=== PATIENT | female | born 1955 | race Caucasian/White ===

== ENCOUNTER 2016-10-20 02:16 | Emergency (ER) | payer OTHER ==
[~2016-10-20] VITALS: Ht 167.6 cm; Wt 80.0 kg
[2016-10-20 02:31] VITALS: BP 125/72; PULSE 95; RESP 16; TEMP 98.1; O2SAT 95
[2016-10-20] MEDS ORDERED: LEVO.05 PO (02:38)
[2016-10-20] MEDS ORDERED: ALPR0.5T3 PO (02:38)
[2016-10-20] MEDS ORDERED: PRIS50TA PO (02:38)
[2016-10-20 03:52] LABS: BASOPHIL # 0.1 TH/MM3 (0-0.2); BASOPHIL % 0.7 % (0.0-2.0); EOSINOPHIL # 0.3 TH/MM3 (0-0.4); HEMO FLAGS DIFF FINAL; LYMPH % 30.6 % (9.0-44.0); LYMPHOCYTE # 2.6 TH/MM3 (1.0-4.8); MEAN CELL VOLUME 83.6 FL (80.0-100.0); MEAN CORPUSCULAR HEMOGLOBIN 27.8 PG (27.0-34.0); MEAN CORPUSCULAR HGB CONC 33.2 % (32.0-36.0); MONO % 6.8 % (0.0-8.0); NEUT % 58.9 % (16.0-70.0); PLATELET COUNT 378 TH/MM3 (150-450); RED BLOOD COUNT 4.55 MIL/MM3 (4.00-5.30); RED CELL DISTRIBUTION WIDTH 15.9 % (11.6-17.2); WHITE BLOOD COUNT 8.5 TH/MM3 (4.0-11.0)
[2016-10-20 03:53] LABS: BACTERIA, URINE RARE /hpf; BLOOD, URINE NEG (NEG); COMMENT (UR) CULT NOT INDICATED; CULTURE IF INDICATED CULT NOT INDICATED; GLUCOSE,URINE NEG (NEG); KETONE, URINE NEG (NEG); NITRITE,URINE NEG (NEG); SQUAMOUS EPITHELIAL CELL URINE <1 /hpf (0-5); URINE COLOR COLORLESS (YELLW/STRAW)
[2016-10-20 03:59] LABS: AMPHETAMINE, URINE NEG (NEG); BARBITURATES, URINE NEG (NEG); COCAINE, URINE NEG (NEG)
[2016-10-20 04:06] LABS: ALT (GPT) 24 U/L (10-53); ANION GAP 16 MEQ/L (5-15); AST (GOT) 22 U/L (15-37); BICARBONATE 20.2 MEQ/L (21.0-32.0); BLOOD UREA NITROGEN 12 MG/DL (7-18); CHLORIDE 109 MEQ/L (98-107); GLOMERULAR FILTRATION RATE 71 ML/MIN (>89); POTASSIUM 4.2 MEQ/L (3.5-5.1); SODIUM (NA) 145 MEQ/L (136-145)
[2016-10-20 04:15] LABS: ALKALINE PHOSPHATASE 111 U/L (45-117); TOTAL BILIRUBIN ADULT 0.1 MG/DL (0.2-1.0)
[2016-10-20 04:20] LABS: ACETAMINOPHEN LESS THAN 2.0 MCG/ML (10.0-30.0)
--- NOTE | 2016-10-20 04:43 | PD ---
HPI Chief Complaint: Psychiatric Symptoms Time Seen by Provider: 04:38 Travel History International Travel<30 days: No Contact w/Intl Traveler<30days: No Traveled to known affect area: No History of Present Illness HPI 61-year-old white female presents to emergency department under [place] act by PD. Her ex- had called PD notifying them that his ex- was feeling acutely suicidal. She states that she's been overwhelmed with the building of her new mobile home in a mobile home park by the [facility]. She states that she has been having problems with building codes in the community. She also states that her brother was diagnosed 6 months ago with ALS. She was hoping to have her home done so they could spend some time together. She admits to drinking alcohol seeming. She states that she gets along well with her ex- . They spent a lot of weekends together. Tonight she had expressed suicidal thoughts. She stated that she was considering [place] and [place]. She denies any toxic ingestions. She states that she truly does not want to hurt herself. She denies any homicidal ideation. No recent illness. PFSH Past Medical History Narrative Medical Depression, hypothyroidism, obesity Depression: Yes Thyroid Disease: Yes (hypo) Tetanus Vaccination: Unknown Influenza Vaccination: No ?: Not Past Surgical History Narrative Surgical Gastric bypass, cholecystectomy, face lift Abdominal Surgery: Yes (gastric bypass) Social History Alcohol Use: Yes Tobacco Use: No Substance Use: No Allergies-Medications (Allergen,Severity, Reaction): Coded Allergies: No Known Allergies (Unverified , 10/20/16) Reported Meds & Prescriptions Reported Meds & Active Scripts Active Reported Alprazolam 0.5 Mg Tab 0.5 Mg PO Q6H PRN Pristiq 24 HR (Desvenlafaxine ER 24 HR) 50 Mg Tab 50 Mg PO DAILY Synthroid (Levothyroxine Sodium) 50 Mcg Tab 50 Mcg PO DAILY Review of Systems Except as stated in HPI: all other systems reviewed are Neg Psychiatric: Positive: Depression, Suicidal Ideations, Mood Disorder, No: Anxiety, Disorder of Thought, Substance Abuse, Homicidal Ideation Physical Exam Narrative GENERAL: Well-nourished, well-developed patient. SKIN: Warm and dry. HEAD: Normocephalic and atraumatic. EYES: No scleral icterus. No injection or drainage. ENT: No nasal drainage noted. Mucous membranes pink. Airway patent. NECK: Supple, trachea midline. Moves head freely without obvious discomfort. CARDIOVASCULAR: Regular rate and rhythm without murmurs, gallops, or rubs. RESPIRATORY: Breath sounds equal bilaterally. No accessory muscle use. GASTROINTESTINAL: Abdomen soft, non-tender, nondistended. EXTREMITIES: No cyanosis or edema. BACK: Nontender without obvious deformity. No CVA tenderness. NEURO: Patient is alert and oriented. no sensorimotor deficits. Nonfocal. Normal speech. PSYCH: No delusions. No auditory or visual hallucinations. Data Data Last Documented VS Vital Signs Date Time Temp Pulse Resp B/P Pulse Ox O2 Delivery O2 Flow Rate FiO2 10/20/16 02:31 98.1 95 16 125/72 95 Orders Complete Blood Count With Diff (10/20/16 03:22) Comprehensive Metabolic Panel (10/20/16 03:22) Thyroid Stimulating Hormone (10/20/16 03:22) Urinalysis - C+S If Indicated (10/20/16 03:22) Psych Screen (10/20/16 03:22) Drug Screen, Random Urine (10/20/16 03:22) Alcohol (Ethanol) (10/20/16 03:22) Salicylates (Aspirin) (10/20/16 03:22) Tylenol (Acetaminophen) (10/20/16 03:22) Labs Laboratory Tests Test 10/20/16 03:15 White Blood Count 8.5 TH/MM3 Red Blood Count 4.55 MIL/MM3 Hemoglobin 12.6 GM/DL Hematocrit 38.0 % Mean Corpuscular Volume 83.6 FL Mean Corpuscular Hemoglobin 27.8 PG Mean Corpuscular Hemoglobin 33.2 % Concent Red Cell Distribution Width 15.9 % Platelet Count 378 TH/MM3 Mean Platelet Volume 7.5 FL Neutrophils (%) (Auto) 58.9 % Lymphocytes (%) (Auto) 30.6 % Monocytes (%) (Auto) 6.8 % Eosinophils (%) (Auto) 3.0 % Basophils (%) (Auto) 0.7 % Neutrophils # (Auto) 5.0 TH/MM3 Lymphocytes # (Auto) 2.6 TH/MM3 Monocytes # (Auto) 0.6 TH/MM3 Eosinophils # (Auto) 0.3 TH/MM3 Basophils # (Auto) 0.1 TH/MM3 CBC Comment DIFF FINAL Differential Comment Urine Color COLORLESS Urine Turbidity CLEAR Urine pH 5.0 Urine Specific [place] 1.004 Urine Protein NEG mg/dL Urine Glucose (UA) NEG mg/dL Urine Ketones NEG mg/dL Urine Occult Blood NEG Urine Nitrite NEG Urine Bilirubin NEG Urine Urobilinogen LESS THAN 2.0 MG/DL Urine Leukocyte Esterase NEG Urine Squamous Epithelial <1 /hpf Cells Urine Bacteria RARE /hpf Microscopic Urinalysis Comment CULT NOT INDICATED Sodium Level 145 MEQ/L Potassium Level 4.2 MEQ/L Chloride Level 109 MEQ/L Carbon Dioxide Level 20.2 MEQ/L Anion Gap 16 MEQ/L Blood Urea Nitrogen 12 MG/DL Creatinine 0.82 MG/DL Estimat Glomerular Filtration 71 ML/MIN Rate Random Glucose 85 MG/DL Calcium Level 8.5 MG/DL Total Bilirubin 0.1 MG/DL Aspartate Amino Transf 22 U/L (AST/SGOT) Alanine Aminotransferase 24 U/L (ALT/SGPT) Alkaline Phosphatase 111 U/L Total Protein 7.8 GM/DL Albumin 3.9 GM/DL Thyroid Stimulating Hormone 6.060 uIU/ML 3rd Gen Salicylates Level 1.8 MG/DL Urine Opiates Screen NEG Acetaminophen Level LESS THAN 2.0 MCG/ML Urine Barbiturates Screen NEG Urine Amphetamines Screen NEG Urine Benzodiazepines Screen NEG Urine Cocaine Screen NEG Urine Cannabinoids Screen NEG Ethyl Alcohol Level 152 MG/DL MDM Medical Decision Making Medical Screen Exam Complete: Yes Emergency Medical Condition: Yes Medical Record Reviewed: Yes Differential Diagnosis MDM: High Differential diagnoses: Schizophrenia, schizoaffective disorder, bipolar, anxiety, depression, adjustment reaction, mood disorder NOS, ODD, depressive disorder NOS, dementia, dementia with agitation, psychosis NOS, substance induced mood disorder, intermittent explosive disorder, Asperger syndrome, infection,electrolyte abnormality, malingering. Narrative Course Mental health screening discussed with the patient. Psychiatric screen ordered. The patient is been medically cleared. This is alcohol induced mood disorder. Diagnosis Primary Impression: Alcohol dependence with alcohol-induced mood disorder Patient Instructions: General Instructions Condition: Jacob Royal Oct 20, 2016 04:43
[2016-10-20 12:00] VITALS: BP 190/95; PULSE 97; RESP 18; TEMP 98.7; O2SAT 96
[2016-10-20 14:10] VITALS: BP 150/90; PULSE 84; RESP 18
[2016-10-20 15:23] VITALS: BP 175/100; PULSE 84; RESP 18
--- NOTE | 2016-10-20 16:27 | PD ---
History of Present Illness Chief Complaint: Psychiatric Symptoms Time Seen by Provider: 14:00 Travel History International Travel<30 Days: No Contact w/Intl Traveler<30days: No Known affected area: No Legal Status Legal Status: Osborn Act Osborn Act Signed By: Raghu Osborn Act Comment: BA signed by: THUY MARTI Badge#[id number], Case#[id number] History of Present Illness: History of Present Illness HPI 61-year-old white female with history of depression who presents to emergency department under [place] act by PD. As per the report her r ex- had called PD notifying them that his ex- was feeling acutely suicidal. She was intoxicated, upset and [place]. Patient presented with BAL of 152. She was monitored in secure environment and she did not present any behavioral concerns and no suicidality. EMR is reviewed and she has had no previous contact with [facility]. Patient is seen in J pod. She is awake and alert female who is dressed in [facility] with good hygiene. She is clinically sober at this time. Her speech is clear and logical. She denies any hallucinations, delusions or paranoia. She denies any suicidal or homicidal; ideation. She states " I really was not going to jump in the water. I just got very frustrated and overwhelmed with all that is happening in my life. The alcohol did not help and I had run out of my Pristiq 3 days ago. I am at a better place and I have other options. I have talked with my ex and I am thinking clearly now'. She reports multiple stressors including having problems with a neighbor as well as with her TERESO. She is also worried over her brother who was dx with ALS. [facility] Past Medical History Depression: Yes Thyroid Disease: Yes (hypo) Tetanus Vaccination: Unknown Influenza Vaccination: No ?: Not Past Surgical History Abdominal Surgery: Yes (gastric bypass) Psychiatric History Psychiatric History Hx Psychiatric Treatment: in 2010 she was BA and admitted for 3 dys. She has been taking Pristiq since then History of Inpatient Treatment: Yes Guns or firearms in home: No Social History x 10 years after a 14 year marriage She lives alone. 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 Hx Alcohol Use: Yes (Drinks 3 beers 1-2 times per week. ) Hx Tobacco Use: No Hx Substance Use: No Substance Use Type: Alcohol Hx of Substance Use Treatment: No Family Psychiatric History Father and sister with depression Allergies-Medications (Allergen,Severity, Reaction): Coded Allergies: No Known Allergies (Unverified , 10/20/16) Reported Meds & Prescriptions Reported Meds & Active Scripts Active Reported Alprazolam 0.5 Mg Tab 0.5 Mg PO Q6H PRN Pristiq 24 HR (Desvenlafaxine ER 24 HR) 50 Mg Tab 50 Mg PO DAILY Synthroid (Levothyroxine Sodium) 50 Mcg Tab 50 Mcg PO DAILY Review of Systems Except as stated in HPI: all other systems reviewed are Neg Psychiatric: COMPLAINS OF: Depression, Suicidal Ideation Exam Alert: Yes [facility] Medical Decision Making Medical Record Reviewed: Yes Assessment/Plan 61 year old female who is under a BA. She was intoxicated at the time that she wanted to jump in the [place]. At this time she is clinically sober and denies any intetn of wanting to harm herself or others. Has adequate protective factors in place and is future oriented. Advised re abstinence from ETOH since she is on medication Orders Complete Blood Count With Diff (10/20/16 03:22) Comprehensive Metabolic Panel (10/20/16 03:22) Thyroid Stimulating Hormone (10/20/16 03:22) Urinalysis - C+S If Indicated (10/20/16 03:22) Psych Screen (10/20/16 03:22) Drug Screen, Random Urine (10/20/16 03:22) Alcohol (Ethanol) (10/20/16 03:22) Salicylates (Aspirin) (10/20/16 03:22) Tylenol (Acetaminophen) (10/20/16 03:22) Diet Regular Basic (10/20/16 Breakfast) Diet Regular Basic (10/20/16 Lunch) Results Vital Signs Date Time Temp Pulse Resp B/P Pulse Ox O2 Delivery O2 Flow Rate FiO2 10/20/16 15:23 84 18 175/100 Room Air 10/20/16 14:10 84 18 150/90 Room Air 10/20/16 12:00 98.7 97 18 190/95 96 Room Air 10/20/16 02:31 98.1 95 16 125/72 95 Laboratory Tests Test 10/20/16 03:15 White Blood Count 8.5 Red Blood Count 4.55 Hemoglobin 12.6 Hematocrit 38.0 Mean Corpuscular Volume 83.6 Mean Corpuscular Hemoglobin 27.8 Mean Corpuscular Hemoglobin 33.2 Concent Red Cell Distribution Width 15.9 Platelet Count 378 Mean Platelet Volume 7.5 Neutrophils (%) (Auto) 58.9 Lymphocytes (%) (Auto) 30.6 Monocytes (%) (Auto) 6.8 Eosinophils (%) (Auto) 3.0 Basophils (%) (Auto) 0.7 Neutrophils # (Auto) 5.0 Lymphocytes # (Auto) 2.6 Monocytes # (Auto) 0.6 Eosinophils # (Auto) 0.3 Basophils # (Auto) 0.1 CBC Comment DIFF FINAL Differential Comment Urine Color COLORLESS Urine Turbidity CLEAR Urine pH 5.0 Urine Specific [place] 1.004 Urine Protein NEG Urine Glucose (UA) NEG Urine Ketones NEG Urine Occult Blood NEG Urine Nitrite NEG Urine Bilirubin NEG Urine Urobilinogen LESS THAN 2.0 Urine Leukocyte Esterase NEG Urine Squamous Epithelial <1 Cells Urine Bacteria RARE Microscopic Urinalysis Comment CULT NOT INDICATED Sodium Level 145 Potassium Level 4.2 Chloride Level 109 Carbon Dioxide Level 20.2 Anion Gap 16 Blood Urea Nitrogen 12 Creatinine 0.82 Estimat Glomerular Filtration 71 Rate Random Glucose 85 Calcium Level 8.5 Total Bilirubin 0.1 Aspartate Amino Transf 22 (AST/SGOT) Alanine Aminotransferase 24 (ALT/SGPT) Alkaline Phosphatase 111 Total Protein 7.8 Albumin 3.9 Thyroid Stimulating Hormone 6.060 3rd Gen Salicylates Level 1.8 Urine Opiates Screen NEG Acetaminophen Level LESS THAN 2.0 Urine Barbiturates Screen NEG Urine Amphetamines Screen NEG Urine Benzodiazepines Screen NEG Urine Cocaine Screen NEG Urine Cannabinoids Screen NEG Ethyl Alcohol Level 152 Diagnosis Primary Impression: Alcohol abuse Additional Impression: Alcohol abuse with alcohol-induced mood disorder Psychiatrically Cleared: Yes Patient Instructions: General Instructions Med/ Other Pt Specific Info: No Change to Meds Disposition: 01 DISCHARGE HOME Condition: Stable Problem Qualifiers Odilia Singh Oct 20, 2016 16:27
[2016-10-20 16:28] VITALS: BP 150/90; PULSE 84; RESP 18
== END 2016-10-20 18:42 | disposition home or self-care (01) ==
LOC: NEPA 02:16 → NEPJ 18:42
DX: F10.24 Alcohol dependence with alcohol-induced mood disorder (principal); F10.10 Alcohol abuse, uncomplicated; F10.14 Alcohol abuse with alcohol-induced mood disorder; E03.9 Hypothyroidism, unspecified; E66.9 Obesity, unspecified; Z86.59 Personal history of other mental and behavioral disorders
CPT/HCPCS: 80053; 80307; 80320; 80329; 81001; 84443; 85025; 99284; G0480